=== PATIENT | male | born 1960 | race Caucasian/White ===

== ENCOUNTER 2017-07-20 07:45 | Day surgery (SDC) | payer BC ==
[~2017-07-20 07:45] MED LIST: RINGER'S SOLUTION,LACTATED 1,000 ML IV PRN; ceFAZolin SODIUM 1 GM VIAL IV PRN
[2017-07-20] MEDS ORDERED: RINGER'S SOLUTION,LACTATED 1,000 ML IV ONE ×2 (08:20→09:25)
--- NOTE | 2017-07-20 09:41 | OR ---
Operative Report - Dictated Report Narrative: Date: 07/20/2017 Physician: Geronimo West M.D. 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 Childers Is a 56 year-old male who has been followed in my clinic with complaints of shoulder pain consistent acromioclavicular arthrosis resulting in impingement. Physical exam and diagnostic imaging were consistent with his complaints and concern for acromioclavicular arthrosis. Conservative measures have failed including, but not limited to, passage of time, activity modification, medications, physical therapy/home exercise program, or injections. The risks, benefits, and alternatives were discussed in clinic. The risks being , bleeding, infection, blood clots, nerve, tendon, ligament , blood vessel injury, persistent pain, arthrosis, stiffness, need for prolonged therapy, need for additional procedures, and persistent symptoms. Consent was obtained in the clinic. Procedure: After marking the correct extremity in the preoperative holding area, a timeout was performed in the operating room. IV antibiotics consisting of Ancef were administered prior to the procedure. A general followed by regional anesthetic was induced by the nurse automotive technician per my request. This was in the supine position, then the patient was transitioned to a beachchair position with all bony prominences well-padded, head in neutral, the nonoperative arm well supported, and the legs padded with SCDs in place. The operative shoulder was then prepped and draped in a standard sterile fashion. Attention was then turned to the distal clavicle. A longitudinal incision was made over the acromioclavicular joint. This was sharply dissected down to the chromic clavicular capsule. Cautery was utilized for hemostasis. A longitudinal capsulotomy was made and elevated off the anterior posterior aspects of the distal clavicle. There is notable hypertrophic bone and loss of joint space between the acromion and clavicle. Protecting the surrounding soft tissues, an oscillating saw was utilized in order to resect approximately 7-10 mm of bone from the distal clavicle. The remaining clavicle was stable after removing this. The shoulders place a range of motion and showed no remaining impingement between the acromion and the clavicle. Wounds were then thoroughly irrigated. The capsule was closed with interrupted 0 Vicryl to subcutaneous tissue with 3-0 Vicryl. Skin was closed with 4-0 nylon. Dressings consisting of Xeroform, 4 x 4, Tegaderm were applied. All sponge, needle, blade, and instrument counts were correct prior to closing the wounds. The patient was awoken and transferred to the postanesthesia care unit in stable condition.
[2017-07-20] MEDS ORDERED: RINGER'S SOLUTION,LACTATED 1,000 ML IV PRN (10:17)
[2017-07-20] MEDS ORDERED: oxyCODONE HCL/ACETAMINOPHEN 1 TAB TABLET PO PRN (10:18)
[2017-07-20] MEDS ORDERED: HYDROmorphone HCL 2 MG/ML VIAL IV PRN (10:19)
[2017-07-20 11:05] VITALS: BP 127/72
--- NOTE | 2017-07-20 16:25 | OR ---
Anesthesia Procedure Note - Anesthesia Procedure Note Narrative: Vital Signs - Last Taken Temp 36.4 C L 07/20/17 14:04 Pulse 93 07/20/17 14:04 Resp 18 07/20/17 14:04 BP 127/72 07/20/17 14:04 Pulse Ox 94 07/20/17 14:04 O2 Oxygen Delivery Method Room Air 07/20/17 16:20 ANESTHESIA PROCEDURE NOTE Date of procedure: ANESTHESIA PROCEDURE NOTE Date of procedure: 07/20/2017. Time of procedure: . Performed by: Arcadio Kaba CRNA Auto Driver: Mitzi Solorio RN . Preprocedure diagnosis: Left shoulder AC arthrodesis. Need for postoperative analgesia.. Post procedure diagnosis: Same. Procedure: Left interscalene brachial plexus nerve block under ultrasound guidance. Indications: Postoperative analgesia. Findings: Patient brought to operating room #2 and placed in a semi-Fowlers position. Patient was sedated. Patient's left neck was prepped with ChloraPrep. Ultrasound was used to locate the brachial plexus in the interscalene groove. One mL of 1% Xylocaine was infiltrated at the skin. A 22- gauge 2 inch Stimuplex regional block needle was inserted under ultrasound guidance and nerve stimulator to verify needle placement around the nerves of the brachial plexus. A total of 40 mL of 0.5% Marcaine with epinephrine 1:200k was injected around the nerves. Regional block needle was removed intact. Fluids: N/A. Specimen: N/A. Post procedure condition: The patient tolerated the procedure well. No complications were noted. Thank you for this consultation Arcadio Kaba CRNA. Time of procedure:[]. Performed by: Arcadio Kaba CRNA Auto Driver: [] . Preprocedure diagnosis: []. Post procedure diagnosis: Same. Procedure:[] Indications: []. Findings: [] EBL: Minimal. Fluids: N/A. Specimen: N/A. Post procedure condition: The patient tolerated the procedure well. No complications were noted. Thank you for this consultation Arcadio Kaba CRNA
== END 2017-07-20 07:46 | disposition home or self-care (01) ==
LOC: AMB 07:45
PROVIDERS: ATTEND Orthopaedic Surgery
PROC: 3E0T3BZ Introduction of Anesthetic Agent into Peripheral Nerves and Plexi, Percutaneous Approach (ICD-10-PCS; 2017-07-20)
PROC: 0PBB0ZZ Excision of Left Clavicle, Open Approach (ICD-10-PCS; principal; 2017-07-20 09:15)
DX: M19.012 Primary osteoarthritis, left shoulder (principal); M75.42 Impingement syndrome of left shoulder; I10 Essential (primary) hypertension; E78.00 Pure hypercholesterolemia, unspecified; E03.9 Hypothyroidism, unspecified; F32.9 Major depressive disorder, single episode, unspecified; Z87.891 Personal history of nicotine dependence; Z68.33 Body mass index [BMI] 33.0-33.9, adult